=== PATIENT | male | born 1995 | race African-American/Black ===

== ENCOUNTER 2020-05-31 16:26 | Emergency (ER) | payer OTHER, SELFPAY ==
--- NOTE | 2020-05-31 | ECG_ITS ---
Test Reason : CHEST PAIN Blood Pressure : / mmHG Vent. Rate : 097 BPM Atrial Rate : 097 BPM P-R Int : 136 ms QRS Dur : 090 ms QT Int : 330 ms P-R-T Axes : 083 089 065 degrees QTc Int : 419 ms Normal sinus rhythm Possible Left atrial enlargement Borderline ECG No previous ECGs available Referred By: Generic ED Physician Electronically Signed By:NESHA COLEY
--- NOTE | ~2020-05-31 | XR_ITS ---
EXAMINATION: XR CHEST CLINICAL INFORMATION: Chest pain radiating down left arm. COMPARISON: None TECHNIQUE: Frontal view of the chest was obtained. FINDINGS: The lungs are hyperinflated but clear of acute process at size and pulmonary vascularity is normal. There is mild dextroscoliosis lower dorsal spine. No lytic process. XR/XR chest 1V IMPRESSION: Hyperinflated lungs are clear.
[2020-05-31 17:37] VITALS: BP 152/85; PULSE 97; RESP 16; TEMP 36.6; O2SAT 98; BMI 19.0
[2020-05-31 18:28] LABS: MANUAL DIFF FLAG NO
[2020-05-31 18:33] LABS: Basophils Percent Auto 0.6 % (0-2); Eosinophils Percent Auto 0.6 % (0-4); Hematocrit 45.2 % (42-52); Imm Gran Abs Auto 0.01 X10*3/uL (0.00-0.03); Imm Gran Pct Auto 0.2 % (0.0-0.4); Lymphocytes Absolute Auto 1.7 X10*3/uL (1.2-4.9); Lymphocytes Percent Auto 27.1 % (20-40); Mean Corpuscular HGB Conc 33.2 g/dl (31.0-36.0); Mean Corpuscular Hemoglobin 29.9 pg (27.0-33.0); Mean Platelet Volume 8.9 fL (9.4-12.4); Monocytes Absolute Auto 0.6 X10*3/uL (0.1-1.2); Monocytes Percent Auto 9.8 % (2-11); Neutrophils Absolute Auto 3.9 X10*3/uL (2.0-8.3); Neutrophils Percent Auto 61.7 % (45-73); Platelet Count 281 X10*3/uL (160-400); Red Blood Count 5.02 X10*6/uL (4.60-5.80); Red Cell Distribution Width 13.1 % (11.0-16.0); White Blood Count 6.2 X10*3/uL (4.8-10.8)
[2020-05-31 19:00] LABS: Anion Gap 12 (12-20); Blood Urea Nitrogen 10 mg/dL (9-16); Calcium 9.9 mg/dL (8.4-10.2); Carbon Dioxide 26 mmol/L (22-29); Chloride 104 mmol/L (96-108); Creatinine Clr Calc Pharmacy 93.8; Estimated Glomerular Filt Rate > 60; Glucose Random 73 mg/dL (60-115); Potassium 4.5 mmol/L (3.3-5.1); Sodium 137 mmol/L (135-145)
[2020-05-31 19:04] LABS: Troponin-I High Sensitivity 7.8 ng/L (<3.5-35.0)
[2020-05-31 21:25] VITALS: BP 124/84; PULSE 73; RESP 18; TEMP 37; O2SAT 99
[2020-05-31 21:26] VITALS: PULSE 76
--- NOTE | 2020-05-31 21:27 | PC.NURSE ---
patient a&ox3, property assessment monitor intact pt nsr 70s, vss, pt awaiting provider, will continue to monitor.
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
[2020-05-31 21:57] LABS: INTERNATIONAL NORM RATIO 1.3 (0.9-1.1); Prothrombin Time 15.2 SEC (10.8-13.0)
[2020-05-31 22:00] LABS: Partial Thromboplastin Time 33.7 SEC (24.1-38.0)
[2020-05-31 22:03] LABS: D Dimer < 200 NG/ML
[2020-05-31 22:11] LABS: COVID-19 Test Negative (Negative)
[2020-05-31] MEDS: Famotidine 20 MG TABLET PO (22:33)
[2020-05-31] MEDS: Lidocaine HCl Viscous 2 % 15 ML SOLUTION MUCOUS MEM (22:34)
[2020-05-31] MEDS: Magnesium Hydrox/Alum Hydrox 30 ML ORAL.SUSP PO (22:34)
[2020-05-31] MEDS: PHENobarb/Hyoscy/Atropine/Scop 10 ML ELIXIR PO (22:35)
[2020-05-31 23:33] LABS: Troponin-I High Sensitivity 7.8 ng/L (<3.5-35.0)
== END 2020-06-01 00:54 | disposition home or self-care (01) ==
PROVIDERS: Physician Assistant; Emergency Provider Emergency Medicine
DX: R07.89 Other chest pain (principal); Z20.822 Contact with and (suspected) exposure to COVID-19; F17.210 Nicotine dependence, cigarettes, uncomplicated; F12.90 Cannabis use, unspecified, uncomplicated
CPT/HCPCS: 36415; 71045; 80048; 84484; 85025; 85379; 85610; 85730; 87635; 93005; 99283; 99285

== ENCOUNTER 2020-09-17 13:11 | Emergency (ER) | payer OTHER, SELFPAY ==
--- NOTE | ~2020-09-17 | US_ITS ---
EXAMINATION: US ABDOMEN LIMITED CLINICAL INFORMATION: ? Cholelithiasis versus cholecystitis. COMPARISON: CT dated 09/17/2020 TECHNIQUE: Real-time imaging of the gallbladder FINDINGS: Multiple dependent, mobile gallstones are present in the gallbladder, measuring between 4 and 7 mm in diameter. No appreciable shadowing. Gallbladder wall is normal in thickness without fluid within the wall or appreciable pericholecystic fluid. No surrounding inflammatory changes. Common bile duct is normal in caliber, measuring 3 mm. Imaged portion of the liver is unremarkable. US/US abdomen limited IMPRESSION: Cholelithiasis without evidence of cholecystitis.
--- NOTE | ~2020-09-17 | CT_ITS ---
EXAMINATION: CT ABDOMEN AND PELVIS WITH CONTRAST CLINICAL INFORMATION: Left upper quadrant abdominal pain. Recent EtOH intake. COMPARISON: None TECHNIQUE: Multidetector volumetric images were obtained from the superior aspect of the liver through the pubic symphysis following administration 85 mL of Omnipaque 350 intravenous contrast. Sagittal and coronal reformatted images were obtained on the technologist's workstation. Oral contrast: No This CT examination was performed using dose optimization techniques as appropriate, variously including the following: *Automated exposure control *Adjustment of mA and/or kV according to patient size (this includes techniques or standardized protocols for targeted exams where dose is matched to indication/reason for exam; i.e. extremities or head) *Use of iterative reconstruction technique DLP: 384 mGy-cm FINDINGS: LUNG BASES: A tiny nodule possibly a intrapulmonary lymph node measures 0.1 cm at the left lung base. The lung bases are otherwise clear. No follow-up suggested. LIVER, GALLBLADDER, AND BILIARY TREE: The liver is normal in size, shape, and attenuation. No focal hepatic lesion or biliary ductal dilatation is present. The gallbladder is nondistended. Several tiny hyperdensities are seen at the dependent aspect of the gallbladder and subtle cholelithiasis or sludge is possible. No gallbladder wall thickening or pericholecystic fluid. PANCREAS: Unremarkable. SPLEEN: Unremarkable. ADRENAL GLANDS: Unremarkable. KIDNEYS AND URETERS: Right kidney: The right kidney is normal in appearance without calculus or hydronephrosis. Left kidney: The kidney has good cortical thickness without calculus or hydronephrosis. A 1.4 x 1.3 cm interpolar simple cyst or calyceal diverticulum is identified. BLADDER: Unremarkable. GASTROINTESTINAL TRACT: The small and large bowel are unremarkable. The appendix is unremarkable. ABDOMINAL WALL: No significant abdominal wall hernia. LYMPH NODES: No evidence of lymphadenopathy. A surgical clip or calcification is seen in the right groin. VASCULAR: Unremarkable. PELVIC VISCERA: The prostate and seminal vesicles are unremarkable. OSSEOUS STRUCTURES: Surgical hardware is seen in the right hip. No acute osseous abnormality is seen. CT/CT abdomen pelvis w con IMPRESSION: 1. No cause for left upper quadrant abdominal pain is seen. 2. Possible sludge or gallstones dependently in the gallbladder. Correlate with ultrasound and follow-up. 3. Left renal simple cyst versus calyceal diverticulum. No follow-up recommended.
[2020-09-17 13:47] VITALS: BP 147/81; PULSE 70; RESP 18; TEMP 36.3; O2SAT 100; BMI 19.0
[2020-09-17 15:11] LABS: MANUAL DIFF FLAG NO
[2020-09-17 15:14] LABS: Basophils Percent Auto 0.4 % (0-2); Eosinophils Percent Auto 0.9 % (0-4); Hematocrit 42.9 % (42-52); Hemoglobin 14.4 g/dl (14.0-18.0); Imm Gran Abs Auto 0.01 X10*3/uL (0.00-0.03); Imm Gran Pct Auto 0.2 % (0.0-0.4); Lymphocytes Absolute Auto 1.4 X10*3/uL (1.2-4.9); Lymphocytes Percent Auto 30.6 % (20-40); Mean Corpuscular HGB Conc 33.6 g/dl (31.0-36.0); Mean Corpuscular Hemoglobin 30.3 pg (27.0-33.0); Mean Corpuscular Volume 90.1 fL (80-98); Mean Platelet Volume 8.9 fL (9.4-12.4); Monocytes Absolute Auto 0.5 X10*3/uL (0.1-1.2); Monocytes Percent Auto 11.8 % (2-11); Neutrophils Absolute Auto 2.5 X10*3/uL (2.0-8.3); Neutrophils Percent Auto 56.1 % (45-73); Platelet Count 272 X10*3/uL (160-400); Red Blood Count 4.76 X10*6/uL (4.60-5.80); Red Cell Distribution Width 13.2 % (11.0-16.0); White Blood Count 4.5 X10*3/uL (4.8-10.8)
[2020-09-17 15:32] LABS: Ethanol < 10 mg/dL
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
[2020-09-17 16:00] VITALS: BP 126/67; PULSE 74; RESP 16; TEMP 36.6; O2SAT 99
[2020-09-17 16:02] LABS: Alanine Aminotransferase 21 U/L (0-40); Albumin Level 4.4 g/dL (3.5-5.0); Alkaline Phosphatase 65 U/L (39-117); Anion Gap 11 (12-20); Aspartate Amino Transferase 21 U/L (5-37); Bilirubin Total 1.5 mg/dL (0.0-1.0); Blood Urea Nitrogen 10 mg/dL (9-16); Calcium 9.6 mg/dL (8.4-10.2); Carbon Dioxide 26 mmol/L (22-29); Chloride 108 mmol/L (96-108); Creatinine Clr Calc Pharmacy 99.2; Estimated Glomerular Filt Rate > 60; Glucose Random 93 mg/dL (60-115); Lipase 12 U/L (8-78); Magnesium 1.7 mg/dL (1.6-2.6); Potassium 4.4 mmol/L (3.3-5.1); Sodium 141 mmol/L (135-145); Total Protein 7.4 g/dL (6.5-8.0); Triglycerides 40 mg/dL
[2020-09-17] MEDS: cefTRIAXone sodium 500 MG, Lidocaine HCl 1 % MPF 1 ML IM (16:05)
[2020-09-17] MEDS: Penicillin G Benzathine 2,400,000 UNIT/4 ML SYRINGE 2400000 UNIT IM (16:05)
[2020-09-17 16:12] LABS: Lactate Dehydrogenase 138 U/L (118-273)
[2020-09-17] MEDS: iohexoL 350 MG/ML 100 ML INFUS..BTL IV (16:23)
[2020-09-17 17:02] LABS: Glucose Urine UA NEG (NEG); Leukocyte Esterase Urine NEG (NEG); Nitrite Urine NEG (NEG); PH 6.5 (5.0-8.0); Specific Gravity - Urine <= 1.005 (1.005-1.025); Urine Blood NEG (NEG); Urine Ketones NEG (NEG); Urine Protein NEG (NEG-TRACE)
[2020-09-17 17:16] LABS: Appearance Urine CLEAR; Color Urine STRAW
[2020-09-17] MEDS: oxyCODONE HCl Immed Release 5 MG TABLET PO (19:32)
[2020-09-17] MEDS: Ketorolac Tromethamine 15 MG/ML VIAL 30 MG IVPUSH (19:32)
[2020-09-18 01:41] LABS: CT PCR DETECTED (Not Detect.); NG PCR NOT DETECTED (Not Detect.)
[2020-09-18 08:22] LABS: Syphilis Screen Nonreactive (Nonreactive)
== END 2020-09-17 19:47 | disposition home or self-care (01) ==
PROVIDERS: Physician Assistant Medical; Emergency Provider Internal Medicine; PCP Internal Medicine Rheumatology
DX: A74.9 Chlamydial infection, unspecified (principal); N28.1 Cyst of kidney, acquired; R10.9 Unspecified abdominal pain; F12.90 Cannabis use, unspecified, uncomplicated; Z79.899 Other long term (current) drug therapy; Z20.2 Contact with and (suspected) exposure to infections with a predominantly sexual mode of transmission
CPT/HCPCS: 36415; 74177; 76705; 80053; 81003; 82077; 83615; 83690; 83735; 84478; 85025; 86780; 87491; 87591; 96361; 96365; 96375; 99284; J0561; J0696; J1885; Q9967

== ENCOUNTER → 2020-09-21 14:22 | Outpatient (BNVA) | payer OTHER, SELFPAY | PROVIDERS: PCP Internal Medicine Rheumatology; Referring Provider Internal Medicine Rheumatology; Visit Provider Surgery | DX: K80.20 Calculus of gallbladder without cholecystitis without obstruction (principal) | CPT/HCPCS: 99202 ==